=== PATIENT | male | born 1995 | race Caucasian/White ===

== ENCOUNTER 2017-07-08 02:02 | Emergency (ER) | payer BC ==
[~2017-07-08] VITALS: Ht 182.9 cm; Wt 106.8 kg
[2017-07-08 02:06] VITALS: BP 138/83; TEMP 97
[2017-07-08] MEDS ORDERED: AMOXICILLIN 50500 MG PO (02:50)
[2017-07-08] MEDS ORDERED: NORCO 325 MG-51 TAB PO (02:50)
[2017-07-08 03:00] VITALS: PULSE 67
== END 2017-07-08 03:00 | disposition home or self-care (01) ==
LOC: COL.ER 02:02
DX: K03.81 Cracked tooth (principal)